=== PATIENT | female | born 1985 | race Caucasian/White ===

== ENCOUNTER → 2019-08-14 | Outpatient (CLI) | payer OTHER | LOC: COL.RAD 12:51 | DX: D73.89 Other diseases of spleen (principal); R93.89 Abnormal findings on diagnostic imaging of other specified body structures | CPT/HCPCS: A9585 ==

== ENCOUNTER → 2020-01-04 | Outpatient (CLI) | payer OTHER | LOC: COL.RAD 09:28 | DX: R16.1 Splenomegaly, not elsewhere classified (principal); R93.89 Abnormal findings on diagnostic imaging of other specified body structures | CPT/HCPCS: A9585 ==

== ENCOUNTER → 2020-01-28 | Outpatient (CLI) | payer OTHER ==
[~2020-01-28] VITALS: Ht 167.6 cm; Wt 71.0 kg
[~2020-01-28] MED LIST: GLUCOPHAGE500 MG/TAB PO; INDERAL40 MG PO; ZOLOFT 50MG50 MG PO
[2020-01-28 09:18] VITALS: BP 138/78; PULSE 69
--- NOTE | 2020-01-28 10:00 | NUR ---
procedure cancelled by Dr Gruber
== END ==
LOC: COL.RAD 09:00
DX: R93.89 Abnormal findings on diagnostic imaging of other specified body structures (principal)

== ENCOUNTER 2020-03-04 13:54 | Inpatient (IN) | payer OTHER ==
[~2020-03-04] VITALS: Ht 167.6 cm; Wt 70.0 kg
[2020-03-22 14:32] LABS: HEMATOCRIT 41.6 % (37.0-47.0); HEMOGLOBIN 13.8 g/dl (12.5-16.0); MEAN CELL VOLUME 88 fl (80.0-100.0); MEAN CORPUSCULAR HEMOGLOBIN 29 pg (27.0-31.0); MEAN CORPUSCULAR HGB CONC 33 g/dl (33.0-37.0); MEAN PLATELET VOLUME 9.9 fl (7.4-10.4); PLATELET COUNT 251 K/mm3 (130-400); RED BLOOD COUNT 4.73 M/mm3 (4.10-5.30); REDCELL DISTRIBUTION WIDTH-CV 12.6 % (11.5-14.5)
[2020-03-23] VITALS (12 sets, daily range): BP systolic 103–133; BP diastolic 66–93; PULSE 51–78; TEMP 98.1–98.6
--- NOTE | 2020-03-23 07:40 | NUR ---
The patient ambulated back to [address] independently using a steady gait and appeared to tolerate the activity well. Vital signs obtained. Consent signed. 18G IV started in left hand with one stick, LR infusing without difficulty. Heart Reg. Lungs clear. Bowel sounds audible. Blood obtained from IV start for re-type on Type and Screen per protocol. Call light is within reach at this time. The patient denies any further needs at this time. Will continue to monitor the patient.
--- NOTE | 2020-03-23 11:00 | NUR ---
Patient arrived to floor from PACU via bed at approximately 1100. Post op checks initiated. Patient is sleepy but rouses, is alert and oriented. 4 laps on abdomen are WA and BANQUET CHEF, no drainage noted. Patient reports that her pain is well controlled at this time, denies further needs. Call light within reach, instructed patient to call for assistance when she needs to get up for the first time, patient verbalized understanding.
--- NOTE | 2020-03-23 18:12 | NUR ---
Patient resting in bedside recliner at this time. Patient has c/o severe pain in her left shoulder and nausea. Educated patient about gas pain after robotic surgeries and the fact that narcotic pain medications will not relieve the pain. Informed patient that chewing gum and ambulating will help dissipate the gas pain. Patient has been ambulaing indpendently in the halls several times this evening. Denies further needs at this time, call light within reach.
--- NOTE | 2020-03-23 20:00 | NUR ---
Received report from ZAIRE Luis. Pt currently sitting up in bed. Pt has her call light within reach.
--- NOTE | 2020-03-23 22:00 | NUR ---
Pt currently ambulating the halls. Pt has tolerated the walk well. Pt was given he scheduled Tylenol at this time.
[2020-03-24 00:06] VITALS: BP 90/55; PULSE 57; TEMP 97.8
[2020-03-24 04:03] VITALS: BP 111/69; PULSE 48; TEMP 98.3
[2020-03-24 06:42] LABS: HEMATOCRIT 41.3 % (37.0-47.0); HEMOGLOBIN 13.6 g/dl (12.5-16.0)
[2020-03-24 07:16] VITALS: BP 114/72; PULSE 60; TEMP 97.9
--- NOTE | 2020-03-24 07:47 | NUR ---
Reported off to ZAIRE Martin.Pt currently sleeping in bed. Pt has her call light within reach.
--- NOTE | 2020-03-24 09:45 | NUR ---
Patient alert and oriented, answers questions appropriately. See assessment. Abdomen soft, non tender, non distended. Bowel sounds active x4 quads. +Flatus. Lap sites to abdomen with edges well approximated, no redness or drainage noted. ERAS protocol reviewed with patient. No c/o at this time.
--- NOTE | 2020-03-24 11:10 | NUR ---
Dr Galvan here to see patient.
--- NOTE | 2020-03-24 11:37 | NUR ---
JOSEPHINE met with the patient to complete initial intake. The patient lives with her and their two kids in [place]. The patient denies DME use and is independent with ADLs. The patient receives all medical care and medications on . The patient does not have advanced directives in the EMR. The patient plans to return home at discharge. There are no additional needs at this time.
== END 2020-03-24 12:57 | disposition home or self-care (01) | DRG 822 ==
LOC: SURG 03-23 06:28 → INPTSU 03-23 06:28 → SURG 03-23 08:30
PROVIDERS: ADMIT Surgery
PROC: 8E0W4CZ Robotic Assisted Procedure of Trunk Region, Percutaneous Endoscopic Approach (ICD-10-PCS; 2020-03-23)
PROC: 07TP4ZZ Resection of Spleen, Percutaneous Endoscopic Approach (ICD-10-PCS; principal; 2020-03-23 08:30)
DX: C26.1 Malignant neoplasm of spleen (principal)
CPT/HCPCS: A4314; A9284; J0461; J2370; J2405; J2704; J3010; J7050; J7120

== ENCOUNTER 2021-02-10 07:10 | Day surgery (SDC) | payer OTHER ==
[~2021-02-10] VITALS: Ht 167.6 cm; Wt 73.6 kg
[2021-02-10 08:06] VITALS: BP 120/65; PULSE 68; TEMP 97.9
[2021-02-10] MEDS ORDERED: GLUMETZA1000 MG PO (08:15)
[2021-02-10] MEDS ORDERED: INDERAL40 MG PO (08:16)
[2021-02-10] MEDS ORDERED: FOLIC ACID 11 MG/TA1 PO (08:16)
[2021-02-10] MEDS ORDERED: TREXALL10 MG PO (08:17)
[2021-02-10] MEDS ORDERED: PROAIR HFA0.09 MG/AC IH (08:18)
[2021-02-10] MEDS ORDERED: FLOVENT 110MCG7.9 GM IH (08:18)
[2021-02-10 09:50] VITALS: BP 115/85; PULSE 78; TEMP 97.5
[2021-02-10 10:13] VITALS: BP 117/95; PULSE 66
[2021-02-10 10:15] VITALS: BP 115/82; PULSE 68
[2021-02-10 10:30] VITALS: BP 115/78; PULSE 76
--- NOTE | 2021-02-10 10:55 | NUR ---
0950 Pt returns from Endo procedure via cart and this RN. Monitors on and alarms set. Call light within reach. Pt requests muffin and water. Pt denies pain or nausea. Pt alert and oriented. Pt coughing periodically from procedure. 1010 Pt taking food and drink well. No complications voiced. 1034 Pt ambulates to restroom with RN assist without complication. 1040 Discharge instructions reviewed with pt. All questions answered to her satisfaction. Handed to her are a thank you card, discharge instructions and diagnosis information. 1055 Pt transferred out of hospital via wheelchair and Sean tech assist, to private vehicle driven by friend.
[2021-02-10 16:14] VITALS: BP 125/83; PULSE 87
== END 2021-02-10 10:55 | disposition home or self-care (01) ==
LOC: SDCO 07:10
DX: D86.9 Sarcoidosis, unspecified (principal); R59.0 Localized enlarged lymph nodes; J45.30 Mild persistent asthma, uncomplicated; R93.89 Abnormal findings on diagnostic imaging of other specified body structures; D84.9 Immunodeficiency, unspecified; I10 Essential (primary) hypertension; Z20.822 Contact with and (suspected) exposure to COVID-19; Z80.9 Family history of malignant neoplasm, unspecified
CPT/HCPCS: J2704; J7120